=== PATIENT | male | born 1940 | race Caucasian/White ===

== ENCOUNTER 2016-07-03 12:00 | Inpatient (IN) | payer MEDICARE, BC ==
[~2016-07-03] VITALS: Ht 182.9 cm; Wt 103.8 kg
--- NOTE | ~2016-07-03 | ECH ---
Transthoracic Echocardiography Report (TTE) Demographics Patient Name FRANKO SNOWDEN Date of Study 07/03/2016 Patient Number [id number] Visit Number [id number] Date of 1940 Room Number 402 Accession Number [id number] Gender Male Age 76 year(s) Referring Adolph Amezquita MD Electro Mechanical Technologist Shaunna Turner [facility] Physician Rohit Bonilla MD Physician Interpreting [place] Chand MD Resident Care Supervisor Physician Supervising Ordering Physician Adolph Amezquita MD, MD/[facility] Nurse Stress Patrol Sergeant Conclusions Summary Technically fair exam. The estimated left ventricular ejection fraction is 60-65%. Moderate septal left ventricular hypertrophy. Diastolic assessment reveals Grade I diastolic dysfunction. Bubble study was done, there is no evidence for a PFO or ASD. Trivial tricuspid regurgitation by color Doppler. Trivial pulmonic valve regurgitation by color Doppler. Procedure Type of Study TTE procedure Procedure Date Date: 07/03/2016 Start: 03:50 Technical Quality: Fair Indications:CVA. Appropriate Use Criteria: 9 Contrast Medium: Bubble Study. Height: 72 inches Weight: 238.69 pounds BSA: 2.3 m Rhythm: Sinus bradycardia HR: 62 bpm BP: 142/78 mmHg M-Mode/2D Measurements LV Diastolic Dimension: 4.56 cm LV Systolic Dimension: 2.61 cm LV Septum Diastolic: 1.43 cm LV PW Diastolic: 1.07 cm AO Root Dimension: 3.37 cm Cardiac Output: 3.31 l/min LA Dimension: 3.45 cm Cardiac Index: 1.44 l/min*m RV Diastolic Dimension: 3.23 cm LA volume index: 21 ml/m LVOT: 1.97 cm LVOT VTI: 17.51 cm RV Base: 3.1 cm LV Stroke volume: 53.34 ml RV Mid: 2.4 cm LV Stroke volume index: 23.19 ml/m RV Length: 6.6 cm TAPSE: 3 cm Doppler Measurements AV Peak Velocity: 1.38 m/s MV Peak E-Wave: 0.64 m/s AV Peak Gradient: 7.62 mmHg MV Peak A-Wave: 0.72 m/s AV Mean Gradient: 3.75 mmHg MV E/A Ratio: 0.9 LVOT Peak Velocity: 0.92 m/s MV P1/2t: 59.3 msec AV Area (Continuity):1.96 cm MV Deceleration Time: 215.5 msec TR Velocity:2.38 m/s MV Area (PHT): 3.71 cm TR Gradient:22.66 mmHg PV Peak Velocity: 1.05 m/s Estimated RAP:5 mmHg PV Peak Gradient: 4.38 mmHg Estimated RVSP: 28 mmHg Estimated PASP: 27.66 mmHg RA Area: 14.16 cm Findings Left Ventricle The left ventricle is normal in size . Moderate septal left ventricular hypertrophy. Diastolic assessment reveals Grade I diastolic dysfunction. Right Ventricle Normal right ventricle structure and function. Left Atrium Normal left atrial size. Bubble study was done, there is no evidence for a PFO or ASD. Right Atrium Normal right atrial size. Mitral Valve Normal mitral valve structure and function. Aortic Valve The aortic valve is mildly sclerotic. There is trivial aortic regurgitation by color Doppler. Tricuspid Valve Normal tricuspid valve structure and function. Trivial tricuspid regurgitation by color Doppler. Pulmonic Valve Normal pulmonic valve structure and function. Trivial pulmonic valve regurgitation by color Doppler. Pericardial Effusion No evidence of pericardial effusion. Miscellaneous Visualized portions of the aortic root and ascending aorta appear normal in size. Pleural Effusion No evidence of pleural effusion. Signature
--- NOTE | ~2016-07-03 | FD ---
ADMIT: 07/03/2016 RM/LOC: 402 [facility] MR#: [id number] [address] [address] FRANKO SNOWDEN [address] [place] [address] Final Diagnosis SEX: M AGE: 76 : 1940 ADMISSION DATE: 07/03/2016 DISCHARGE DATE: 07/04/2016 DISMISSAL DIAGNOSES: 1. Lightheadedness, etiology unknown. 2. Rule out hypoglycemia. 3. Diabetes. 4. Hyperlipidemia. 5. Sensory neuropathy. Chad Farfan MD/ modl JOB #: [id number] CC: Chad Farfan MD, Attending Physician Chad Farfan MD, Family Physician
[2016-07-06] MEDS ORDERED: ASA325 MG PO (08:11)
[2016-07-06] MEDS ORDERED: LIVALO1 MG PO (08:11)
[2016-07-06] MEDS ORDERED: GLUCOPHAGE-DPS500 MG PO (08:11)
[2016-07-06] MEDS ORDERED: NEURONTIN DPS300 MG PO (08:11)
[2016-07-06] MEDS ORDERED: VITAMIN D-32000 UNI1 PO (08:12)
[2016-07-06] MEDS ORDERED: OMEGA-3 DPS1000 MG PO (08:12)
[2016-07-06] MEDS ORDERED: NASAREL NASAL S25 ML NS (08:13)
[2016-07-06] MEDS ORDERED: SUPER B COMPLE150 MG PO (08:13)
[2016-07-06] MEDS ORDERED: MULTIPLE VITAM1 EACH PO (08:13)
--- NOTE | 2016-08-13 10:49 | HP ---
ADMIT: 07/03/2016 RM/LOC: 402 [facility] MR#: [id number] [address] [facility] [address] [place] [id number] FRANKO CORONADO [address] [place] [address] History and Physical SEX: M AGE: 76 : 1940 DATE OF SERVICE: CHIEF COMPLAINT: "Lightheadedness." CLINICAL HISTORY: Douglas Coronado is the patient who was over at Physical Therapy in [place] with his , who recently had shoulder surgery. He is normally quite loquacious and started to feel slightly lightheaded at approximately 10:00 this morning. He felt like his arms were a little heavy and that his thinking was faster than his reaction time and there was a slight phase where he felt like he slurred his words just slightly, but when talking to him closer, he felt like he just could not spit out his words more than actual slurring. He had trouble talking on the phone when the friend called mostly and that he could not understand the gist of the conversation. All of these symptoms passed after about 10 or 15 minutes. His completed her physical therapy session, and at approximately 11:45, they got in the car to leave and he still felt vaguely lightheaded. He had his son take his home and he proceeded to the emergency room driving himself. When he got there, his history was vague. He really could not explain them any symptoms. He just stated that he did not feel well. His only real complaint at that time and subsequently has been some vague lightheadedness, but that is all essentially resolved. He is a diabetic patient. He takes his Glucophage at bedtime. Did not eat this morning, except a half a piece of toast and his day went as above. He doctors for the most part at the [facility], I saw him for the first time approximately a year ago as the only time I have seen him. His hemoglobin A1cs have always been 6.3 or below and several have been in the nondiabetic range. He has had hyperlipidemia, on treatment, and his cholesterol has always been good. He has never had hypertension. He does not smoke. 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 PAST MEDICAL HISTORY: Diabetes, hyperlipidemia, prior lower GI bleed, post colonoscopy polyp removal. MEDICATIONS: 1. Metformin long-acting 500 mg at bedtime daily. 2. 1 mg daily. 3. Aspirin 81 mg daily and various p.r.n. medications. 4. He takes Neurontin 300 mg at bedtime daily as well. REVIEW OF SYSTEMS: Essentially negative for any cardiac symptoms including no palpitations, chest pain. He is unsure whether he has had any of this vague lightheadedness before. He has not had any recent illness he is aware of. He does have some allergic rhinitis and this has been bothering him somewhat lately. He has not had any other specific swelling in his feet, etc, but he ADMIT: 07/03/2016 RM/LOC: 402 [facility] MR#: [id number] [address] [address] FRANKO CORONADO [address] [place] [address] History and Physical SEX: M AGE: 76 : 1940 does have sensory neuropathy in the lower extremities. It is not clear that all of this, however, is due to his diabetes. PHYSICAL EXAMINATION: GENERAL: Examination reveals a fluent, talkative individual, who is in no acute distress. HEAD AND NECK: Otherwise unremarkable without carotid bruits. LUNGS: Clear. HEART: Regular without findings. ABDOMEN: Benign, mildly overweight with truncal obesity. EXTREMITIES: Showed good pulses, sensory neuropathy involving the ankles and below. No specific foot ulcerations. Good movement and strength in all extremities. Downgoing Babinski and no focal neurological signs. Higher cortical centers were normal. He was oriented. IMPRESSION: 1. Lightheadedness, etiology unknown. 2. Rule out hypoglycemia. 3. Rule out underlying arrhythmia. 4. Evaluate for possible transient ischemic attack (no current findings). 5. Diabetes. 6. Hyperlipidemia. 7. Sensory neuropathy. PLAN: The CT scan, EKG, and all laboratory are unremarkable. We will repeat some of his labs and proceed with an MRI and a chest x-ray tomorrow. We will watch him for low blood sugar. Continue his current medications and see what we can do to help him. Chad Farfan MD/ katalina JOB #: [id number] CC: Chad Farfan, Attending Physician Chad Farfan, Family Physician
== END 2016-07-04 16:58 | disposition home or self-care (01) | DRG 149 ==
LOC: ER 12:00 → 4PCU 13:40
PROVIDERS: ADMIT Internal Medicine
DX: R42 Dizziness and giddiness (principal); E11.40 Type 2 diabetes mellitus with diabetic neuropathy, unspecified; E11.9 Type 2 diabetes mellitus without complications; E66.8 Other obesity; E78.5 Hyperlipidemia, unspecified; Z79.84 Long term (current) use of oral hypoglycemic drugs; Z79.82 Long term (current) use of aspirin; Z68.32 Body mass index [BMI] 32.0-32.9, adult

== ENCOUNTER 2016-07-07 21:43 | Emergency (ER) | payer MEDICARE, BC ==
[~2016-07-07 21:43] MED LIST: ASA325 MG PO; GLUCOPHAGE-DPS500 MG PO; LIVALO1 MG PO; MULTIPLE VITAM1 EACH PO; NASAREL NASAL S25 ML NS; NEURONTIN DPS300 MG PO; OMEGA-3 DPS1000 MG PO; SUPER B COMPLE150 MG PO; VITAMIN D-32000 UNI1 PO
--- NOTE | 2016-07-12 01:31 | ER ---
ADMIT: 07/07/2016 RM/LOC: ER [facility] MR#: [id number] [id number] [place], [place] [address] FRANKO SNOWDEN [address] [place] [address] Emergency Room Report SEX: M AGE: 76 : 1940 DATE: 07/07/2016 ADDENDUM: A 76-year-old male, comes in with some symptoms of aphasia earlier with some vague arm coordination issues. He had similar symptoms 4 days ago and was admitted at that time for possible TIA or CVA. He had a CT and MRI done, which were unremarkable, and the patient was discharged the next day. He had been on 81 mg aspirin prior to that and is now currently on a full strength aspirin. The symptoms he had today were similar, but not as severe and they have resolved by the time he got to the ER. I discussed the case with Dr. Farfan, his physician. At this point, we are not going to do a workup as he is completely resolved, and he just had an MRI and CT done 4 days ago. He is to continue taking his full strength aspirin and call Dr. Farfan's office tomorrow to arrange for a followup appointment to be checked out that day. Angel Pugh MD/ katalina JOB #: [id number] CC: Angel Pugh MD, Attending Physician Chad Farfan MD, Family Physician
== END 2016-07-07 23:25 | disposition home or self-care (01) ==
LOC: ER 21:43
DX: R47.81 Slurred speech (principal); R41.0 Disorientation, unspecified; E11.9 Type 2 diabetes mellitus without complications; E78.5 Hyperlipidemia, unspecified; Z79.84 Long term (current) use of oral hypoglycemic drugs; Z79.899 Other long term (current) drug therapy; Z79.82 Long term (current) use of aspirin